=== PATIENT | male | born 1975 | race Caucasian/White ===

== ENCOUNTER → 2016-08-21 | Outpatient (CLI) | payer BC ==
--- NOTE | 2016-08-21 18:22 | Pulmonary Function Test ---
Pulmonary Function Test Date of Procedure:: 08/21/16 INDICATION:: Dyspnea Referring Provider: Regan Evans MD Cytotechnologist/Histotechnologist: Ele Arnold [employer]GETABLE F[employer]ER, ENVIRONMENTAL STUDIES PROGRAM DIRECTOR - Report Spirometry: FVC 4.75 L 94% FEV1 4.05 L 97% FEV1/FVC % 85 predicted 83 FEV1 25-75% 5.07 predicted 116% Lung Volume: Total lung capacity 9.83 L 141% Vital capacity 4.75 L 94% Inspiratory capacity 3.23 FRC-N2 2 6.6 187% ERV 0.98 RV 6.08 252% RV/TLC % 52 predicted 30 Diffusion Capactity: DLCO 26.3 87% DLCO/VA 4.93 112% Impression: This study does not meet criteria for obstructive ventilatory defect or small airways disease. No restrictive ventilatory defect is noted. Supranormal lung total lung capacity and residual volume are noted.There is a normal diffusion capacity
== END ==
LOC: RT 10:28
PROVIDERS: ATTEND Internal Medicine Pulmonary Disease
DX: R06.00 Dyspnea, unspecified (principal)
CPT/HCPCS: 94010; 94727; 94729